=== PATIENT | male | born 1955 | race American Indian/Alaskan Native ===

== ENCOUNTER 2017-12-21 19:08 | Emergency (ER) | payer MEDICARE, OTHER ==
[2017-12-21] MEDS ORDERED: ZOFRAN IV ONE (19:28)
[2017-12-21] MEDS ORDERED: MORPHINE IV ONE (19:28)
--- NOTE | 2017-12-21 19:34 | Emergency Department Report ---
ED Fall HPI - General Stated Complaint: back pain Time Seen by Provider: 12/21/17 19:25 - History of Present Illness Initial Comments: Patient is 62 years old male with history of hypertension. Patient brought to the ER via EMS for evaluation after he sustained a fall just prior to arrival to the ER. Patient stated that he slipped and fell at the [employer] store. Patient stated that he is having headache and lower back pain. Patient denied any loss of consciousness, neck pain, chest pain, abdominal pain, extremity pain , weakness numbness tingling sensation or bowel and bladder incontinence. MD Complaint: fall -: Sudden, This evening Fall From: standing When Fall Occurred: just prior to arrival Fall Witnessed: yes, by bystander Place Fall Occurred: other (grocery store) Loss of Consciousness: none Prolonged Down Time?: no Symptoms Prior to Fall: none Location: head, back Severity scale (0 -10): 5 Context: tripped/slipped Associated Symptoms: denies. denies: headache - Related Data Previous Rx's Medication Instructions Recorded Last Taken Type oxyCODONE /ACETAMINOPHEN [Percocet 1 tab PO Q6HR PRN #10 tablet 03/24/15 Unknown Rx 5/325] Allergies Allergy/AdvReac Type Severity Reaction Status Date / Time No Known Allergies Allergy Verified 03/24/15 14:18 ED Review of Systems ROS: Stated complaint: back pain Other details as noted in HPI Comment: All other systems reviewed and negative Constitutional: denies: chills, fever Respiratory: denies: cough, orthopnea, shortness of breath, SOB with exertion, SOB at rest, wheezing Cardiovascular: denies: chest pain, palpitations, dyspnea on exertion Gastrointestinal: denies: abdominal pain, nausea, vomiting Musculoskeletal: back pain Neurological: denies: headache, weakness, numbness, paresthesias, abnormal gait ED Past Medical Hx - Past Medical History Hx Hypertension: Yes - Surgical History Additional Surgical History: left leg surgery-cyst removed. - Social History Smoking Status: Never Smoker Substance Use Type: None - Medications Home Medications: Home Medications Medication Instructions Recorded Confirmed Last Taken Type oxyCODONE /ACETAMINOPHEN [Percocet 1 tab PO Q6HR PRN #10 tablet 03/24/15 Unknown Rx 5/325] ED Physical Exam - General General appearance: alert, in no apparent distress - Head Head exam: Present: atraumatic, normocephalic, normal inspection - Eye Eye exam: Present: normal appearance, PERRL - ENT ENT exam: Present: normal exam, normal orophraynx, mucous membranes moist - Neck Neck exam: Present: normal inspection, full ROM. Absent: tenderness, meningismus, lymphadenopathy, thyromegaly - Respiratory Respiratory exam: Present: normal lung sounds bilaterally. Absent: respiratory distress, wheezes, rales, rhonchi, stridor, chest wall tenderness, accessory muscle use, decreased breath sounds, prolonged expiratory - Cardiovascular Cardiovascular Exam: Present: regular rate, normal rhythm, normal heart sounds - GI/Abdominal GI/Abdominal exam: Present: soft, normal bowel sounds. Absent: distended, tenderness, guarding, rebound, rigid, organomegaly, mass, bruit, pulsatile mass , hernia - Extremities Exam Extremities exam: Present: normal inspection, full ROM, normal capillary refill - Back Exam Back exam: Present: normal inspection, tenderness, muscle spasm, paraspinal tenderness. Absent: full ROM (decreased range of motion), CVA tenderness (R), vertebral tenderness, rash noted - Neurological Exam Neurological exam: Present: alert, oriented X3, CN II-XII intact, normal gait, reflexes normal - Skin Skin exam: Present: warm, intact, normal color ED Course Vital Signs 12/21/17 19:23 Temperature 97.5 F L Pulse Rate 85 Respiratory 18 Rate Blood Pressure 166/84 O2 Sat by Pulse 99 Oximetry ED Medical Decision Making - Radiology Data Radiology results: report reviewed Referring Physician: FRANKY ALBERTO Patient Name: TATY LANDRY Date of : 1955 Sex: Male Report Date: 2017-12-21 Report Status: Finalized Findings [facility] [address] [place] [address] Cat Scan Report Signed Patient: TATY LANDRY MR#: [id number] : 1955 Acct:[id number] Age/Sex: 62 / M ADM Date: 12/21/17 Loc: ED Attending Dr: Ordering Physician: FRANKY ALBERTO Date of Service: 12/21/17 Procedure(s): CT head/brain wo con Accession Number(s): [id number] cc: FRANKY ALBERTO FINAL REPORT EXAM: CT HEAD/BRAIN WO CON HISTORY: head injury COMPARISON: CT of the head from March 2015. TECHNIQUE: Axial images obtained skull base through vertex. FINDINGS: No acute intracranial hemorrhage, midline shift or pathologic extra axial fluid collection. Ventricles and cisterns are normal in size and configuration for the patient's age. Franco-white differentiation preserved. Calvarium grossly intact. Ocular globes are grossly unremarkable. Mild mucosal thickening the paranasal sinuses. Minimal calcified plaque along the carotid siphons. IMPRESSION: No grossly acute intracranial abnormality. Transcribed By: LMA Dictated By: PHOEBE GONZALEZ MD Electronically Authenticated By: PHOEBE GONZALEZ MD Signed Date/Time: 12/21/171948 DD/ 48 TD/TT: 12/21/171948 Referring Physician: FRANKY ALBERTO Patient Name: TATY LANDRY Date of : 1955 Sex: Male Report Date: 2017-12-21 Report Status: [place] [address] XRay Report Signed Patient: TATY LANDRY MR#: [id number] : 1955 Acct:[id number] Age/Sex: 62 / M ADM Date: 12/21/17 Loc: ED Attending Dr: Ordering Physician: FRANKY ALBERTO Date of Service: 12/21/17 Procedure(s): XR spine lumbosacral 2-3V Accession Number(s): [id number] cc: FRANKY ALBERTO Fluoro Time In Minutes: FINAL REPORT EXAM: XR SPINE LUMBOSACRAL 2-3V HISTORY: BACK INJURY COMPARISON: None available. FINDINGS: Three views of the lumbar spine obtained. Lumbar vertebral body heights are preserved. Mild to moderate loss of disc height mid to lower lumbar spine with endplate osteophyte mild to moderate facet changes. No spondylolisthesis. Mild to moderate calcified plaque along the aorta. IMPRESSION: Lumbar vertebral body heights preserved. [id number] degenerative changes of the lumbar spine. Transcribed By: LMA Dictated By: PHOEBE GONZALEZ MD Electronically Authenticated By: PHOEBE GONZALEZ MD Signed Date/Time: 12/21/172034 DD/ 34 TD/TT: 12/21/172034 - Medical Decision Making Patient stated that he is feeling much better. CT head is negative for acute finding. Lumbosacral x-ray with no acute finding. I advised patient to follow up with his primary care physician in the next 2-3 days. Critical care attestation.: If time is entered above; I have spent that time in minutes in the direct care of this critically ill patient, excluding procedure time. ED Disposition Clinical Impression: Fall, Head injury, Contusion of lower back Disposition: - TO HOME OR SELFCARE Is pt being admited?: No Condition: Stable Instructions: Minor Head Injury (ED), Low Back Strain (ED) Referrals: PRIMARY CARE, [Primary Care Provider] - 3-5 Days
--- NOTE | 2017-12-21 19:50 | Cat Scan Report ---
FINAL REPORT EXAM: CT HEAD/BRAIN WO CON HISTORY: head injury COMPARISON: CT of the head from March 2015. TECHNIQUE: Axial images obtained skull base through vertex. FINDINGS: No acute intracranial hemorrhage, midline shift or pathologic extra axial fluid collection. Ventricles and cisterns are normal in size and configuration for the patient's age. Franco-white differentiation preserved. Calvarium grossly intact. Ocular globes are grossly unremarkable. Mild mucosal thickening the paranasal sinuses. Minimal calcified plaque along the carotid siphons. IMPRESSION: No grossly acute intracranial abnormality.
--- NOTE | 2017-12-21 20:36 | XRay Report ---
FINAL REPORT EXAM: XR SPINE LUMBOSACRAL 2-3V HISTORY: BACK INJURY COMPARISON: None available. FINDINGS: Three views of the lumbar spine obtained. Lumbar vertebral body heights are preserved. Mild to moderate loss of disc height mid to lower lumbar spine with endplate osteophyte mild to moderate facet changes. No spondylolisthesis. Mild to moderate calcified plaque along the aorta. IMPRESSION: Lumbar vertebral body heights preserved. [id number] degenerative changes of the lumbar spine.
[2017-12-21 22:23] VITALS: BP 164/81
== END 2017-12-21 22:22 | disposition home or self-care (01) ==
LOC: ED 19:08
DX: S30.0XXA Contusion of lower back and pelvis, initial encounter (principal); W18.30XA Fall on same level, unspecified, initial encounter; Y93.89 Activity, other specified; Y92.89 Other specified places as the place of occurrence of the external cause; Y99.8 Other external cause status
CPT/HCPCS: 70450; 72100; 96374; 96375; 99284; J2270; J2405